=== PATIENT | female | born 1955 | race African-American/Black ===

== ENCOUNTER 2019-05-12 09:31 | Outpatient (CLI) | payer OTHER ==
[2019-05-12] MEDS ORDERED: SIMVASTATIN5 MG PO (12:09)
[2019-05-12] MEDS ORDERED: GLUMETZA500 MG PO (12:10)
[2019-05-12] MEDS ORDERED: NORVASC2.5 M1 PO (12:10)
[2019-05-26] MEDS ORDERED: ANASTROZOLE1 MG PO (14:46)
== END 2019-05-12 09:40 | disposition home or self-care (01) ==
LOC: LAB 09:31
DX: C50.911 Malignant neoplasm of unspecified site of right female breast (principal)

== ENCOUNTER 2019-05-26 16:32 | Inpatient (IN) | payer OTHER ==
[~2019-05-26] VITALS: Ht 162.6 cm; Wt 65.8 kg
[~2019-05-26 16:32] MED LIST: ANASTROZOLE1 MG PO; GLUMETZA500 MG PO; NORVASC2.5 M1 PO; SIMVASTATIN5 MG PO
== END 2019-05-30 17:23 | disposition home or self-care (01) | DRG 581 ==
LOC: SURH 05-29 05:57 → O/R 05-29 05:57 → RECOVERY 05-29 14:12 → SURH 05-29 19:46
PROVIDERS: Plastic Surgery; ADMIT Surgery
PROC: 0HBT0ZX Excision of Right Breast, Open Approach, Diagnostic (ICD-10-PCS; 2019-05-29)
PROC: 0H0V0ZZ Alteration of Bilateral Breast, Open Approach (ICD-10-PCS; 2019-05-29)
PROC: 07B90ZX Excision of Left Internal Mammary Lymphatic, Open Approach, Diagnostic (ICD-10-PCS; principal; 2019-05-29 11:00)
PROC: 0HBU0ZZ Excision of Left Breast, Open Approach (ICD-10-PCS; 2019-05-29 11:00)
DX: C50.512 Malignant neoplasm of lower-outer quadrant of left female breast (principal); N62 Hypertrophy of breast; I10 Essential (primary) hypertension; E11.9 Type 2 diabetes mellitus without complications; Z17.0 Estrogen receptor positive status [ER+]; Z79.4 Long term (current) use of insulin

== ENCOUNTER → 2020-11-06 | Outpatient (CLI) | payer OTHER | END | disposition home or self-care (01) | LOC: MAMO-SONO 12:53 | DX: C50.312 Malignant neoplasm of lower-inner quadrant of left female breast (principal) ==

== ENCOUNTER 2020-11-07 14:31 | Outpatient (CLI) | payer OTHER | END 2020-11-07 15:33 | disposition home or self-care (01) | LOC: NUCLEAR 14:31 | DX: M81.0 Age-related osteoporosis without current pathological fracture (principal); N95.1 Menopausal and female climacteric states ==

== ENCOUNTER 2023-08-31 13:10 | Outpatient (CLI) | payer OTHER | END 2023-08-31 13:12 | disposition home or self-care (01) | LOC: NUCLEAR 13:10 | DX: N95.1 Menopausal and female climacteric states (principal); M81.0 Age-related osteoporosis without current pathological fracture ==

== ENCOUNTER 2024-05-22 09:02 | Outpatient (CLI) | payer OTHER | END 2024-05-22 09:10 | disposition home or self-care (01) | LOC: MAMO-SONO 09:02 | PROVIDERS: ATTEND Internal Medicine | DX: C50.512 Malignant neoplasm of lower-outer quadrant of left female breast (principal); R10.9 Unspecified abdominal pain ==